=== PATIENT | female | born 1945 | race Caucasian/White ===

== ENCOUNTER 2024-06-30 09:18 | Emergency (ER) | payer OTHER ==
--- OUTSIDE RECORDS SUMMARY | 2024-06-30 09:21 | XMS REPORT | Clinical Summary ---
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
[2024-06-30] MEDS ORDERED: ONDANSETRON 4 MG/2 ML VIAL ONE (09:25)
[2024-06-30] MEDS ORDERED: HYDROMORPHONE HCL 1 MG/ML INJ ONE ×3 (09:25→12:16)
[2024-06-30 09:40] LABS: Absolute Basophils 0.1 K/uL (0-0.5); Absolute Eosinophils 0.4 K/uL (0-0.5); Absolute Lymphocytes (CBC) 1.2 K/uL (0.7-4.9); Absolute Monocytes 0.5 K/uL (0.1-1.3); Absolute Neutrophil 3.9 K/uL (1.8-8.0); Basophils % 1.2 % (0-1.3); Eosinophils % 6.2 % (0-4.4); Hematocrit 37.6 % (36.0-45.0); Hemoglobin 13.5 g/dL (12.0-15.0); Lymphocytes % 19.8 % (15.3-44.8); MCHC 35.8 g/dL (32.0-36.0); MCV 92.3 fL (80-100); MPV 8.1 fL (7.6-11.3); Monocytes % 8.5 % (3.3-12.3); Neutrophils % 64.3 % (41.7-73.7); Platelets 298 thou/uL (152-406); RBC Red Blood Cell Count 4.08 M/uL (3.86-4.86); Red Cell Distribution Width 12.7 % (12.1-15.2)
--- NOTE | 2024-06-30 09:56 | RAD REPORT ---
Exam:Shoulder Right 2+ Views History: Right shoulder pain Findings: Comminuted markedly displaced fracture involves the distal right clavicle. Injuries to the coracoclavicular and acromioclavicular ligaments present.
--- NOTE | 2024-06-30 09:56 | RAD REPORT ---
Exam:Clavicle Right CLINICAL HISTORY: Right shoulder pain FINDINGS: Comminuted markedly displaced fracture involves the distal right clavicle. Injuries to the coracoclavicular and acromioclavicular ligaments present.
[2024-06-30 09:58] LABS: Anion Gap 12.7 mEq/L (5.0-15.0); Potassium 4.7 mEq/L (3.5-5.1)
--- NOTE | 2024-06-30 10:05 | RAD REPORT ---
EXAMINATION: CT HEAD WITHOUT CONTRAST CT CERVICAL SPINE WITHOUT CONTRAST CLINICAL INDICATION: Head and neck injury status post fall. Head and neck pain TECHNIQUE: Axial CT images from the skull base to the vertex without intravenous contrast. Axial CT i mages through the cervical spine were obtained without intravenous contrast. Sagittal and coronal reformatted images were created from the data set. Coronal and sagittal reformatted images were creat ed from the data set. One or more of the following dose reduction techniques were used: Automated exposure control, adjustment of the mA and/or kV according to patient size, and/or iterative reconstr uction. Unless otherwise specified, incidental findings do not require dedicated imaging follow-up. [id number]. Comparison: none FINDINGS: Examination is somewhat limited secondary to difficulty with patient positioning. An intracranial bleed is not seen. Ventricles are normal in caliber. Mild low-density paraventricular, deep cortical white matter probably No extra-axial fluid collection. No fluid within the sinuses/mastoids No fracture or dislocation is seen involving the cervical spine. Scoliosis involves the spine. Spondylosis involves the spine. Mild anterior subluxation C7 on T1. IMPRESSION: No acute intracranial abnormality noted A cervical fracture is not seen. If the patient continues to have symptoms to suggest acute PARTS CONSULTANT/spinal pathology then MRI would be rec ommended
--- NOTE | 2024-06-30 10:14 | RAD REPORT ---
EXAM:Thorax Wo Con CLINICAL INDICATION: Chest pain status post fall TECHNIQUE: CT chest performed.. Axial, sagittal and coronal reconstructions were obtained. One or mor e of the following dose reduction techniques were used: Automated exposure control, adjustment of the mA and/or kV according to the patient size, and/or iterative reconstruction. Unless otherwise specified, incidental findings do not require dedicated imaging follow-up. [id number]. COMPARISON: 2018 FINDINGS: Evaluation of the mediastinum, teresa and vessels is limited secondary to lack of IV contrast administr ation. Mildly displaced fracture anterior second right rib. Moderately displaced fracture third right lateral rib Nondisplaced fracture fourth lateral right rib Mildly displaced fracture fifth lateral right rib Oevgr-jf-rrsmtnqw right pneumothorax. Mild alveolar opacities right lung probably contusion. 6.5 mm right lower lobe nodule unchanged from 2018 likely benign. Follow-up imaging is recommended. No pleural effusion. No pericardial effusion Comminuted markedly displaced fracture distal right clavicle. Injuries to the coracoclavicular and ac romioclavicular ligaments present. Distention of the right internal jugular vein of uncertain significance. Further evaluation with ultr asound recommended. IMPRESSION: Multiple right rib fractures Axhim-oy-vtpiipod right pneumothorax Markedly displaced comminuted distal right clavicle fracture with injuries to the coracoclavicular an d acromioclavicular ligaments.
[2024-06-30] MEDS ORDERED: LIDOCAINE 2% W/EPI 1:200,000 MPF 20 ML VIAL IM ONE ×2 (10:59→11:12)
[2024-06-30] MEDS ORDERED: ETOMIDATE 20 MG/10 ML VIAL IV ONE (11:13)
[2024-06-30] MEDS ORDERED: FENTANYL CITR 100 MCG/2 ML ONE (11:13)
--- NOTE | 2024-06-30 11:40 | EDPHYS ---
Physician Documentation [facility] Name: Sierra Velez Age: 78 yrs Sex: Female : 1945 Arrival Date: 06/30/2024 Time: 09:18 Bed 2 Private MD: ED Physician Kailey Car HPI: 06/30 09:23 This 78 yrs old Female presents to ER via Unassigned with complaints of Fall Injury. sp3 09:23 78-year-old female with history of diabetes, CAD on Plavix, presents to the ED with sp3 mechanical fall secondary to dog "pulling her down". Patient arrives via private vehicle at ambulance bay after which outgoing EMS helped her to bed 2. Patient has obvious deformity of the right clavicle and shoulder area. Multiple abrasions noted immediately. She states she "might of hit her head" but denies any headache. Her main complaint is pain and mild shortness of breath on the right chest and shoulder. She denies any abdominal pain, vomiting, diarrhea, bleeding, syncope or any other concerning signs or symptoms at this time.. Historical: - Allergies: 09:30 Codeine; ld1 09:30 Morphine; ld1 09:30 PENICILLINS; ld1 - PMHx: 09:30 CVA; Hypertension; Hypothyroidism; Diabetes - NIDDM; Hyperlipidemia; GERD; ld1 - Immunization history: Last tetanus immunization: unknown. - Infectious Disease History:: Denies. - Social history:: Smoking status: Patient reports the use of cigarette tobacco products, smokes one-half pack cigarettes per day. ROS: 09:24 Constitutional: Negative for fever, chills, and weight loss, Eyes: Negative for injury, sp3 pain, redness, and discharge, Cardiovascular: Negative for chest pain, palpitations, and edema, Abdomen/GI: Negative for abdominal pain, nausea, vomiting, diarrhea, and constipation, Skin: Negative for injury, rash, and discoloration, Neuro: Negative for headache, weakness, numbness, tingling, and seizure, Psych: Negative for depression, anxiety, suicide ideation, homicidal ideation, and hallucinations, Allergy/Immunology: Negative for hives, rash, and allergies, Endocrine: Negative for neck swelling, polydipsia, polyuria, polyphagia, and marked weight changes, Hematologic/Lymphatic: Negative for swollen nodes, abnormal bleeding, and unusual bruising, 09:24 All other systems are negative, Exam: 09:24 Constitutional: This is a well developed, well nourished patient who is awake, alert, sp3 and in no acute distress. Head/Face: Normocephalic, atraumatic. Eyes: Pupils equal round and reactive to light, extra-ocular motions intact. Lids and lashes normal. Conjunctiva and sclera are non-icteric and not injected. Cornea within normal limits. Periorbital areas with no swelling, redness, or edema. Neck: Trachea midline, no thyromegaly or masses palpated, and no cervical lymphadenopathy. Supple, full range of motion without nuchal rigidity, or vertebral point tenderness. No Meningismus. Cardiovascular: Regular rate and rhythm with a normal S1 and S2. No gallops, murmurs, or rubs. Normal PMI, no JVD. No pulse deficits. Abdomen/GI: Soft, non-tender, with normal bowel sounds. No distension or tympany. No guarding or rebound. No evidence of tenderness throughout. Skin: Warm, dry with normal turgor. Normal color with no rashes, no lesions, and no evidence of cellulitis. 09:24 Chest/axilla: Patient with right clavicular deformity with possible shoulder involvement. Limited range of motion on the right shoulder with possible subluxation versus dislocation overlying as well. Hand neurovascular exam normal on the right side.. Vital Signs: 09:34 BP 178 / 105; Pulse 73; Resp 18; Temp 97.4; Pulse Ox 98% on R/A; Weight 63.5 kg; ph 10:13 BP 135 / 61; Pulse 86; Resp 18; Pulse Ox 96% on 3 lpm NC; Pain 9/10; ld1 11:00 BP 137 / 81; Pulse 62; Resp 18; Pulse Ox 96% on 6 lpm NC; ph 11:20 BP 129 / 102; Pulse 60; Resp 18; Pulse Ox 100% on 6 lpm NC; ph 11:26 BP 144 / 61; Pulse 62; Resp 18; Pulse Ox 97% on 6 lpm NC; ph 11:30 BP 159 / 63; Pulse 60; Resp 18; Pulse Ox 99% on 6 lpm NC; ph 11:35 BP 160 / 61; Pulse 59; Resp 18; Pulse Ox 99% on 6 lpm NC; ph 11:40 BP 156 / 68; Pulse 63; Resp 18; Pulse Ox 99% on 6 lpm NC; ph 11:45 BP 153 / 56; Pulse 59; Resp 18; Pulse Ox 99% on 6 lpm NC; ph 11:50 BP 153 / 55; Pulse 60; Resp 18; Pulse Ox 98% on 6 lpm NC; ph 11:55 BP 151 / 53; Pulse 59; Resp 18; Pulse Ox 99% on 6 lpm NC; ph 12:20 BP 146 / 63; Pulse 58; Resp 18; Pulse Ox 99% on 6 lpm NC; ld1 10:13 Pain Scale: Adult ld1 Procedures: 11:40 Chest tube insertion: the site was prepped using Betadine, in sterile fashion, Tube sp3 size: a 24 polish chest tube was inserted, introduced in right lateral chest wall, to pleur-e-vac, dressed with vaseline gauze, foam tape, 4x4s, the patient tolerated the procedure well. Procedural sedation: Pre-procedure assessment: the patient has been NPO an unknown amount of time prior to arrival, ASA physical classification: I - healthy, no underlying organic disease, Airway assessment: able to hyperextend neck, Mallampati classification of tongue size: I - faucial pillars, soft palate, and uvula can be fully visualized, Monitoring during procedure: digital content marketing manager, continuous pulse oximetry, nurse at bedside at all times, Medications employed: Etomidate, 10 mg(s), Post-procedure assessment: the patient is moderately sedated. MDM: 09:20 Medical Screening Exam initiated sp3 09:25 Data reviewed: vital signs, nurses notes, lab test result(s), radiologic studies. ED sp3 course: 78-year-old female with mechanical fall and trauma injuries to the chest and right upper extremity and clavicular area. Workup will include CT scan of the head, C-spine and chest noncontrast. Also radiographs of the right shoulder and clavicle. Dilaudid and Zofran for symptomatic control and routine labs pending. Orthopedic intervention and any reductions as needed. Disposition pending workup and patient course.. 10:35 ED course: Imaging demonstrates multiple rib fractures with moderate right-sided sp3 pneumothorax and comminuted right clavicle fracture with tenting. Vital signs remained stable. Will place 24 Indian right-sided chest tube and transfer to trauma center for orthopedic evaluation as well as general surgery management of pneumothorax.. 11:38 ED course: 24 Indian chest tube successfully placed and confirmed on x-ray. Patient sp3 already accepted pulmonary, trauma center. During chest tube placement right arm was placed superiorly which helped with the tenting of the clavicular fracture. Pulse in the right hand is present and normal. Patient received a total of 10 mg of etomidate and tolerated procedure well.. 06/30 09:23 Order name: CBC with Diff; Complete Time: 10:08 3 06/30 09:23 Order name: Chem 7; Complete Time: 10:08 3 06/30 09:21 Order name: CT Chest Wo Con; Complete Time: 10:25 sp3 06/30 09:21 Order name: CT Head C Spine; Complete Time: 10:08 3 06/30 09:22 Order name: Shoulder Right (2 View) XRAY; Complete Time: 10:08 3 06/30 09:22 Order name: Clavicle Right XRAY; Complete Time: 10:08 3 06/30 11:41 Order name: Chest Single View; Complete Time: 12:11 EDMS 06/30 09:23 Order name: NPO; Complete Time: 09:30 3 06/30 09:23 Order name: IV Saline Lock; Complete Time: 09:30 3 06/30 09:23 Order name: Monitor; Complete Time: 09:30 3 06/30 09:23 Order name: Pulse Ox Monitoring; Complete Time: 09:30 3 06/30 10:37 Order name: Oxygen Per Protocol; Complete Time: 12:00 sp3 Administered Medications: 09:30 Drug: HYDROmorphone IVP 1 mg IVP once Route: IVP; Site: left forearm; ld1 10:12 Follow up: Response: No adverse reaction; Pain is unchanged, physician notified ld1 09:30 Drug: Ondansetron IVP 4 mg IVP once; over 2 minutes Route: IVP; Site: left forearm; ld1 10:13 Follow up: Response: No adverse reaction ld1 10:05 Drug: HYDROmorphone IVP 1 mg IVP once; VERBAL ORDER PER DR CAR. Route: IVP; Site: ld1 left forearm; 10:13 Follow up: Response: No adverse reaction ld1 11:20 Drug: Lidocaine-Epinephrine Infiltration -1%: (1:100,000) 20 ml 20 ml Infiltration ld1 once; to bedside {Note: Administered by Dr. Car.} Volume: 20 ml; Route: Infiltration; 11:25 Drug: Etomidate IVP 10 mg IVP once; During procedure once directed Route: IVP; Site: ld1 left forearm; 11:49 Follow up: Response: No adverse reaction ld1 11:30 Drug: fentaNYL (PF) IVP 25 mcg IVP once; VERBAL ORDER PER DR. CAR Route: IVP; Site: ld1 left forearm; 12:23 Follow up: Response: No adverse reaction ld1 12:10 Drug: HYDROmorphone IVP 1 mg IVP once; VERBAL ORDER PER DR. CAR Route: IVP; Site: ld1 left forearm; 12:24 Follow up: Response: No adverse reaction ld1 Disposition Summary: 06/30/24 11:40 Transfer Ordered Notes: Transfer Location: [facility] sp3 Reason: Higher level of care sp3 Condition: Stable sp3 Problem: new sp3 Symptoms: have worsened sp3 Accepting Physician: Trauma team [facility](06/30/24 12:29) ld1 Diagnosis - Mechanical fall, right pneumothorax, multiple right rib fractures, right clavicular sp3 fracture comminuted with tenting Forms: - Medication Reconciliation Form sp3 - SBAR form sp3 Critical care time excluding procedures: 11:39 Critical care time: Bedside Care: 10 minutes, Consultation: 10 minutes, Family sp3 Intervention: 10 minutes. Total time: 30 minutes Signatures: Dispatcher [employer] EDKelsey Monroe RN RN Julianne Chaidez RN RN ld1 Kailey Car MD MD sp3 Corrections: (The following items were deleted from the chart) 09:21 09:21 Head C Spine MPR Wo Con+CT.RAD.BRZ ordered. EDMS EDMS 09:22 09:22 Clavicle Right+RAD.RAD.BRZ ordered. EDMS EDMS 09:23 09:23 CBC+H.LAB.BRZ ordered. EDMS EDMS 09:23 09:23 BASIC METABOLIC PANEL+C.LAB.BRZ ordered. EDMS EDMS 12:29 11:40 Trauma team [facility] sp3 ld1
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
--- NOTE | 2024-06-30 12:09 | RAD REPORT ---
Procedure: Chest Single View HISTORY: Chest tube placement COMPARISON: June 30, 2024 FINDINGS: A right chest tube has been placed. The tip overlies the upper medial right and thorax. A small to moderate right pneumothorax is present.
[2024-06-30 12:36] VITALS: TEMP 97.4
[2024-06-30 12:49] VITALS: O2SAT 99
[2024-06-30 12:51] VITALS: BP 146/63
== END 2024-06-30 12:29 | disposition short-term general hospital (02) ==
LOC: ER 09:18
DX: S27.0XXA Traumatic pneumothorax, initial encounter (principal); S22.41XA Multiple fractures of ribs, right side, initial encounter for closed fracture; S42.031A Displaced fracture of lateral end of right clavicle, initial encounter for closed fracture; W18.30XA Fall on same level, unspecified, initial encounter; F17.210 Nicotine dependence, cigarettes, uncomplicated
CPT/HCPCS: 85025; 80048; 36415; 70450; 71250; 72125; 71045; 73030; 73000; 32556; J3010; J1171 ×3; J2405